=== PATIENT | male | born 2000 | race Caucasian/White ===

== ENCOUNTER 2024-10-12 12:38 | Emergency (ER) | payer OTHER, SELFPAY ==
--- NOTE | ~2024-10-12 | XR_ITS ---
CLINICAL HISTORY: hand fracture 3 view left hand Comparison: None Findings: No fractures or dislocations. No significant loss of joint space or osteophytes. No erosions. No radiopaque foreign body. IMPRESSION: 1. No acute findings This document has been electronically signed by: Eloy Webster MD on 10/12/2024 13:20:09
--- NOTE | ~2024-10-12 | XR_ITS ---
CLINICAL HISTORY: hit in wrist while training 4 view left wrist Comparison: None Findings: No fractures or dislocations. No significant loss of joint space, osteophyte, or erosions. No radiopaque foreign body. IMPRESSION: 1. No acute findings This document has been electronically signed by: Eloy Webster MD on 10/12/2024 13:22:55
[2024-10-12 12:43] VITALS: BP 116/56; PULSE 90; RESP 18; TEMP 36.6; O2SAT 98
--- NOTE | 2024-10-12 12:46 | ED_ITS ---
HPI - General Adult General Chief complaint: Extremity Injury, Upper Stated complaint: wrist inj - work related Time Seen by Provider: 10/12/24 13:52 Source: patient Mode of arrival: ambulatory Limitations: no limitations History of Present Illness ED Provider: Tara Kim NP HPI narrative: Patient is a 24-year-old male who presents emergency department for evaluation of accidental traumatic injury to the left wrist. Reports that he was doing a training exercise, there was a baton that was padded on the end but the handle of the baton thought the dorsal ulnar aspect of his wrist resulting in pain that increases with movement. Denies prior injury to this. Denies numbness tingling or cold sensation to the hand. Related Data Allergies Allergy/AdvReac Type Severity Reaction Status Date / Time No Known Allergies Allergy Verified 10/12/24 12:46 Review of Systems Review of Systems: Yes all other systems are reviewed and are negative FOR[facility] Past Medical History Attestation statement: The following information was validated with the patient. Source: old records reviewed Social History Social History Smoked in Last 30 Days: No Use of substances other than those prescribed or required for medical reasons: No Advance Directives: No Advance Directives Information Provided: No Do you have a plan to hurt others: No Plan Physical Exam ED Vital Signs: Vital Signs - 24 hr 10/12/24 12:43 10/12/24 13:59 10/12/24 14:00 Temperature 98 F 97.8 F 98.3 F Pulse Rate 90 83 83 Respiratory Rate 18 16 Blood Pressure 116/56 L 130/78 114/70 Pulse Oximetry 98 99 100 Oxygen Delivery Method Room Air Room Air Room Air BMI result Body Mass Index 0.0 Appearance: Alert.?Oriented to person, place and time. No acute distress.?Normal affect.? CVS: Heart sounds normal. Normal heart rate and rhythm.? Pulses normal.?? Respiratory: No respiratory distress.? Lung sounds clear to auscultation bilaterally?? Skin: Skin warm and dry.? Normal skin color.? Extremities: Mild erythema over the right dorsal wrist along the ulnar aspect. No deformity. Mild decreased flexion extension. 2+ radial/ulnar pulse. Neuro: Moves all extremities spontaneously. Sensation intact bilaterally. Ambulates with normal steady gait. Course Course Course Narrative: RME: 24-year-old male presents to ED for left wrist pain starting today. Patient states while training he got hit with a blunt object in the left wrist since then has had pain. Patient denies any head trauma any other complaints. Physical exam negative for obvious deformity, ecchymosis or swelling. Patient has complete range of motion vascular motor neuro exam intact. Capillary refills intact. X-ray ordered Medical Decision Making Medical Decision Making MDM Narrative: Patient is a 24-year-old male who presents emergency department for evaluation of accidental traumatic injury to the left wrist as per HPI with resultant pain. Extremities neurovascularly intact distally. Differential including fracture, dislocation, sprain, contusion. XR without acute osseous abnormality. Reviewed conservative treatment, discharged home outpatient follow-up with PCP reviewed worrisome signs and symptoms that would warrant re-evaluation in the emergency department. All questions answered Differential Diagnosis Differential Diagnoses: The differential diagnosis associated with the presentation includes (See narrative above) Independent Interpretation I performed an independent interpretation of an: Plain X-Ray (See narrative above) Radiology Impression Discussion of test interpretation with radiology: I have reviewed the radiologist's reading. Radiologist Impression: 4 view left wrist Comparison: None Findings: No fractures or dislocations. No significant loss of joint space, osteophyte, or erosions. No radiopaque foreign body. IMPRESSION: 1. No acute findings 3 view left hand Comparison: None Findings: No fractures or dislocations. No significant loss of joint space or osteophytes. No erosions. No radiopaque foreign body. IMPRESSION: 1. No acute findings Discharge Plan Discharge Clinical Impression: Sprain of wrist, left Patient Disposition: Home, Self-Care Instructions: Sprain (ED), How to Use an Elastic Bandage (ED) Additional Instructions: No evidence of fracture dislocation on the x-ray imaging. Apply ice for 10-15 minutes 4-6 times daily. Use elastic wrap as provided for compression and decreased motion over the next few days to eating comfort. You can take ibuprofen 200 mg, 3 tablets (600mg) every 6-8 hours as needed for pain, in addition to Tylenol 500 mg, 2 tablets (1,000mg) every 4-6 hours as needed for pain, but not to exceed 3 doses daily (3,000mg).? Follow-up with primary care doctor. Referrals: Physician,None [Primary Care Provider] - Interventions: ED Discharge Assessment Last Done: 10/12/24 14:57 Discharge Date/Time: 10/12/24 14:58 Print Language: [place]
[2024-10-12 13:59] VITALS: BP 130/78; PULSE 83; TEMP 36.6; O2SAT 99
--- NOTE | 2024-10-12 13:59 | PC.NURSE ---
Patient states injury is to Left wrist.
[2024-10-12 14:00] VITALS: BP 114/70; PULSE 83; RESP 16; TEMP 36.8; O2SAT 100
[2024-10-12 14:53] VITALS: BP 114/70; PULSE 83; RESP 16; TEMP 36.8; O2SAT 100
[2024-10-12 14:57] VITALS: BP 114/70; PULSE 83; RESP 16; TEMP 36.8; O2SAT 100
== END 2024-10-12 14:58 | disposition home or self-care (01) ==
PROVIDERS: Emergency Provider Emergency Medicine
DX: S63.502A Unspecified sprain of left wrist, initial encounter (principal); X58.XXXA Exposure to other specified factors, initial encounter; Y93.9 Activity, unspecified; Y92.9 Unspecified place or not applicable; Y99.9 Unspecified external cause status
CPT/HCPCS: 73110; 73120; 99283; 99284

== ENCOUNTER → 2024-10-12 12:45 | Outpatient (BNV) | payer SELFPAY | PROVIDERS: Visit Provider Nuclear Medicine | DX: M25.532 Pain in left wrist (principal); M79.642 Pain in left hand | CPT/HCPCS: 73110; 73120 ==